=== PATIENT | female | born 1975 | race Caucasian/White ===

== ENCOUNTER 2024-01-08 18:00 | Outpatient (CLI) | payer OTHER, SELFPAY ==
[2024-01-08 19:21] LABS: Basophils % 0.7 % (0.1-2.0); Eosinophils # 0.1 K/mm3 (0.0-0.4); Eosinophils % 1.3 % (0.1-12.0); Hematocrit 38.8 % (37.0-47.0); Hemoglobin 12.7 g/dL (12.2-16.2); Lymphocytes # 1.6 K/mm3 (0.7-4.5); Lymphocytes % 24.9 % (10-50); Mean Corpuscular HGB Conc 32.7 g/dL (31.8-35.4); Mean Corpuscular Hemoglobin 28.1 pg (27.0-31.2); Monocytes # 0.4 K/mm3 (0.1-1.0); Monocytes % 6.8 % (1.7-9.3); Neutrophils # 4.2 K/mm3 (1.8-7.8); Neutrophils % 66.3 % (37.0-80.0); Platelet Count 329 K/mm3 (142-424); Red Blood Count 4.51 M/mm3 (4.20-5.40); Red Cell Distribution Width 15.4 % (11.5-17.5); White Blood Count 6.3 K/mm3 (4.8-10.8)
[2024-01-08 19:32] LABS: Alanine Aminotransferase 20 U/L (12-78); Albumin Level 4.1 g/dl (3.5-5.0); Albumin/Globulin Ratio 1.5 (1.1-1.8); Alkaline Phosphatase 81 U/L (38-126); Anion Gap 16.3 mEq/L (5-15); Aspartate Amino Transferase 39 U/L (14-36); Bilirubin,Total 0.4 mg/dl (0.2-1.3); Blood Urea Nitrogen 10 mg/dl (7-17); Calcium 8.9 mg/dl (8.4-10.2); Carbon Dioxide 21 mmol/L (22.0-30.0); Chloride 105 mmol/L (98-107); Chol/HDL Ratio 4.2 (1-3.5); Cholesterol 228 mg/dl (140-200); Estimated Glomerular Filt Rate 106 ml/min (>60); GFR (African American) 128 ML/MIN (>60); Globulin 2.8 g/dL (1.3-3.2); Glucose 91 mg/dl (74-100); HDL Cholesterol 54 mg/dl (40-60); Potassium 4.3 mmoL/L (3.5-5.1); Sodium 138 mmol/L (136-145); Total Protein,Serum 6.9 g/dl (6.3-8.2); Triglycerides 167 mg/dl (30-150); VLDL Cholesterol 33 mg/dL (0-40)
[2024-01-08 19:36] LABS: Microalbumin/Creatinine Ratio 59.2
[2024-01-08 19:40] LABS: Creatinine,Urine Random 83 mg/dL (Not Estab.)
[2024-01-08 19:44] LABS: Direct LDL Cholesterol 128.05 mg/dL (100-129)
[2024-01-08 20:02] LABS: Thyroid Stimulating Hormone 2.33 uIU/mL (0.465-4.68)
[2024-01-08 20:19] LABS: Hemoglobin A1C 5.4 % (4.0-6.0)
[2024-01-08 20:21] LABS: Vitamin B12 206 pg/mL (239-931)
== END 2024-01-08 23:59 | disposition home or self-care (01) ==
LOC: LAB.DROPOF 01-09 09:03
PROVIDERS: PCP Nurse Practitioner; Visit Provider Nurse Practitioner
DX: E11.9 Type 2 diabetes mellitus without complications (principal); I10 Essential (primary) hypertension; I48.91 Unspecified atrial fibrillation; E66.9 Obesity, unspecified; K21.9 Gastro-esophageal reflux disease without esophagitis; R82.90 Unspecified abnormal findings in urine; Z68.43 Body mass index [BMI] 50.0-59.9, adult
CPT/HCPCS: 80050; 80053; 80061; 82043; 82306; 82570; 82607; 83036; 84443; 85025

== ENCOUNTER 2024-01-19 10:09 | Outpatient (CLI) | payer OTHER, SELFPAY | END 2024-01-19 23:59 | disposition home or self-care (01) | LOC: RAD 10:12 | PROVIDERS: PCP Nurse Practitioner; Visit Provider Family Medicine | DX: Z12.31 Encounter for screening mammogram for malignant neoplasm of breast (principal) | CPT/HCPCS: 77063; 77067 ==

== ENCOUNTER 2024-04-04 15:27 | Outpatient (CLI) | payer OTHER, SELFPAY ==
[2024-04-04 20:23] LABS: Influenza A, PCR Not Detected (NotDetected); Influenza B, PCR Not Detected (NotDetected)
[2024-04-04 21:04] LABS: Coronavirus 19, PCR Detected (NotDetected)
== END 2024-04-04 23:59 | disposition home or self-care (01) ==
LOC: LAB.DROPOF 04-05 13:36
PROVIDERS: PCP Nurse Practitioner; Visit Provider Nurse Practitioner
DX: U07.1 COVID-19 (principal)
CPT/HCPCS: 87636

== ENCOUNTER 2024-11-04 11:25 | Outpatient (CLI) | payer OTHER, SELFPAY ==
[2024-11-04 18:13] LABS: Basophils % 0.4 % (0.1-2.0); Eosinophils # 0.2 K/mm3 (0.0-0.4); Eosinophils % 2.3 % (0.1-12.0); Hematocrit 34.4 % (37.0-47.0); Hemoglobin 10.5 g/dL (12.2-16.2); Lymphocytes # 1.6 K/mm3 (0.7-4.5); Lymphocytes % 23.4 % (10-50); Mean Corpuscular HGB Conc 30.5 g/dL (31.8-35.4); Mean Corpuscular Hemoglobin 23.5 pg (27.0-31.2); Monocytes # 0.5 K/mm3 (0.1-1.0); Monocytes % 7.8 % (1.7-9.3); Neutrophils # 4.5 K/mm3 (1.8-7.8); Neutrophils % 65.8 % (37.0-80.0); Nucleated Red Blood Cells # 0 10^3/uL; Nucleated Red Blood Cells % 0 %; Platelet Count 398 K/mm3 (142-424); Red Blood Count 4.47 M/mm3 (4.20-5.40); Red Cell Distribution Width 17.3 % (11.5-17.5); White Blood Count 6.8 K/mm3 (4.8-10.8)
[2024-11-04 18:38] LABS: Creatinine,Urine Random 124 mg/dL (Not Estab.)
[2024-11-04 18:46] LABS: Microalbumin < 6.000 mg/L (0-16.7)
[2024-11-04 19:56] LABS: Alanine Aminotransferase 22 U/L (12-78); Albumin Level 3.7 g/dl (3.5-5.0); Albumin/Globulin Ratio 1.2 (1.1-1.8); Alkaline Phosphatase 84 U/L (38-126); Anion Gap 11.7 mEq/L (5-15); Aspartate Amino Transferase 25 U/L (14-36); Bilirubin,Total 0.4 mg/dl (0.2-1.3); Blood Urea Nitrogen 12 mg/dl (7-17); Calcium 8.7 mg/dl (8.4-10.2); Carbon Dioxide 28 mmol/L (22.0-30.0); Chloride 103 mmol/L (98-107); Chol/HDL Ratio 3.8 (1-3.5); Cholesterol 191 mg/dl (140-200); Estimated Glomerular Filt Rate 105 ml/min (>60); GFR (African American) 128 ML/MIN (>60); Glucose 95 mg/dl (74-100); HDL Cholesterol 50 mg/dl (40-60); Potassium 3.7 mmoL/L (3.5-5.1); Sodium 139 mmol/L (136-145); Total Protein,Serum 6.7 g/dl (6.3-8.2); Triglycerides 105 mg/dl (30-150); VLDL Cholesterol 21 mg/dL (0-40)
[2024-11-04 20:09] LABS: Direct LDL Cholesterol 95.13 mg/dL (100-129)
[2024-11-04 20:10] LABS: 25-OH Vitamin D, Total 60.5 ng/mL (30-100)
[2024-11-04 20:25] LABS: Thyroid Stimulating Hormone 0.81 uIU/mL (0.465-4.68)
[2024-11-04 20:44] LABS: Vitamin B12 380 pg/mL (239-931)
[2024-11-04 21:31] LABS: Hemoglobin A1C 5.1 % (4.0-6.0)
== END 2024-11-04 23:59 | disposition home or self-care (01) ==
LOC: LAB.DROPOF 11-05 14:33
PROVIDERS: PCP Nurse Practitioner; Visit Provider Nurse Practitioner
DX: E11.9 Type 2 diabetes mellitus without complications (principal); I10 Essential (primary) hypertension; E66.813 Obesity, class 3; E66.01 Morbid (severe) obesity due to excess calories; Z68.42 Body mass index [BMI] 45.0-49.9, adult; K21.9 Gastro-esophageal reflux disease without esophagitis; E55.9 Vitamin D deficiency, unspecified; E53.8 Deficiency of other specified B group vitamins
CPT/HCPCS: 80053; 80061; 82043; 82306; 82570; 82607; 83036; 84443; 85025

== ENCOUNTER 2024-12-02 10:20 | Outpatient (CLI) | payer OTHER, SELFPAY ==
--- NOTE | 2024-12-02 10:30 | US_ITS ---
FINAL REPORT CLINICAL HISTORY: ? UMBILICAL HERNIA -- palp area at level of umbilicus / more prominent during mj tino FINDINGS: Limited sonographic images were obtained of the abdominal soft tissues of the area of interest. There is a complex structure of the site of clinical abnormality with minimal peristalsis on Valsalva. This appears to represent an umbilical hernia and may contain bowel. IMPRESSION: Umbilical hernia, possibly containing bowel. Recommend CT for further evaluation. Reviewed, Interpreted and Dictated by Merritt Pardo MD Transcribed by Maria Del Carmen Finney Authenticated and [facility]
== END 2024-12-02 23:59 | disposition home or self-care (01) ==
LOC: RAD 10:21
PROVIDERS: PCP Nurse Practitioner; Visit Provider Nurse Practitioner
DX: K42.9 Umbilical hernia without obstruction or gangrene (principal)
CPT/HCPCS: 76705

== ENCOUNTER 2025-07-01 10:51 | Outpatient (CLI) | payer OTHER, SELFPAY ==
[2025-07-01 20:52] LABS: Hematocrit 38.6 % (37.0-47.0); Hemoglobin 12.7 g/dL (12.2-16.2); Immature Granulocytes % 0.2 %; Mean Corpuscular HGB Conc 32.9 g/dL (31.8-35.4); Mean Corpuscular Hemoglobin 27.9 pg (27.0-31.2); Mean Corpuscular Volume 84.6 fl (81-99); Nucleated Red Blood Cells % 0 %; Platelet Count 330 K/mm3 (142-424); Red Blood Count 4.56 M/mm3 (4.20-5.40); Red Cell Distribution Width-SD 43.8 fL; White Blood Count 8.5 K/mm3 (4.8-10.8)
[2025-07-01 21:30] LABS: Alanine Aminotransferase 20 U/L (12-78); Albumin Level 4.1 g/dl (3.5-5.0); Albumin/Globulin Ratio 1.4 (1.1-1.8); Alkaline Phosphatase 77 U/L (38-126); Anion Gap 14.0 mEq/L (5-15); Aspartate Amino Transferase 22 U/L (14-36); Bilirubin,Total 0.3 mg/dl (0.2-1.3); Blood Urea Nitrogen 21 mg/dl (7-17); Calcium 9.1 mg/dl (8.4-10.2); Carbon Dioxide 26 mmol/L (22.0-30.0); Chloride 102 mmol/L (98-107); Creatinine,Serum 0.70 mg/dl (0.52-1.04); Estimated Glomerular Filt Rate 88 ml/min (>60); GFR (African American) 107 ML/MIN (>60); Globulin 2.9 g/dL (1.3-3.2); Glucose 96 mg/dl (74-100); Potassium 4.0 mmoL/L (3.5-5.1); Sodium 138 mmol/L (136-145); Total Protein,Serum 7.0 g/dl (6.3-8.2)
[2025-07-01 22:00] LABS: 25-OH Vitamin D, Total 64.4 ng/mL (30-100)
[2025-07-01 22:18] LABS: Thyroid Stimulating Hormone 2.70 uIU/mL (0.465-4.68)
[2025-07-01 22:37] LABS: Vitamin B12 460 pg/mL (239-931)
[2025-07-01 23:11] LABS: Hemoglobin A1C 5.0 % (4.0-6.0)
== END 2025-07-01 23:59 ==
LOC: LAB.DROPOF 07-03 10:52
PROVIDERS: PCP Nurse Practitioner; Visit Provider Nurse Practitioner
DX: I48.91 Unspecified atrial fibrillation (principal); E11.9 Type 2 diabetes mellitus without complications; I10 Essential (primary) hypertension; E66.01 Morbid (severe) obesity due to excess calories; E66.813 Obesity, class 3; Z68.42 Body mass index [BMI] 45.0-49.9, adult; K21.9 Gastro-esophageal reflux disease without esophagitis; E55.9 Vitamin D deficiency, unspecified; E53.8 Deficiency of other specified B group vitamins
CPT/HCPCS: 80053; 82306; 82607; 83036; 84443; 85025